=== PATIENT | male | born 1955 | race Hispanic/Latino ===

== ENCOUNTER 2017-03-21 05:50 | Day surgery (SDC) | payer MEDICARE ==
[2017-03-20 10:29] VITALS: BP 131/62
[2017-03-20 10:38] LABS: EOSINOPHILS % (AUTO) 5.8 % (0.0-8.0); HEMATOCRIT 31.2 % (42-54); LYMPHOCYTES % (AUTO) 24.6 % (21.0-51.0); MEAN CORPUSCULAR HEMOGLOBIN 30.4 pg (27.0-33.0); MEAN CORPUSCULAR HGB CONC 35.2 g/dL (32.0-36.0); MEAN CORPUSCULAR VOLUME 86.3 fL (79-99); MONOCYTES % (AUTO) 9.5 % (3.0-13.0); NEUTROPHILS % (AUTO) 59.1 % (40.0-77.0); NUCLEATED RED BLOOD CELLS 0.1 % (0.0-0.19); PLATELET COUNT (AUTO) 214 K/uL (130-400); RED BLOOD CELL COUNT(AUTO) 3.62 MIL/uL (4.50-6.20); RED CELL DISTRIBUTION WIDTH 13.1 % (11.0-15.5); WHITE BLOOD COUNT (AUTO) 8.5 K/uL (4.8-10.8)
[2017-03-20 10:44] LABS: CREATININE 1.7 mg/dL (0.5-1.5); POTASSIUM 4.8 mmol/L (3.5-5.1)
[2017-03-20 10:46] LABS: APPEARANCE,URINE Clear (CLEAR); BILIRUBIN,URINE Negative (NEGATIVE); COLOR,URINE Yellow (YELLOW); GLUCOSE, URINE (UA) Negative (NEGATIVE); KETONES,URINE Negative (NEGATIVE); LEUKOCYTE ESTERASE ,URINE Negative (NEGATIVE); NITRATE,URINE Negative (NEGATIVE); OCCULT BLOOD,URINE Negative (NEGATIVE); PROTEIN,URINE Negative (NEGATIVE); UROBILINOGEN,URINE 0.2 mg/dL (0.2-1.0)
[2017-03-20 10:48] LABS: INR 1.17 (0.85-1.15); PARTIAL THROMBOPLASTIN TIME 25.7 SEC (26.3-35.5); PROTHROMBIN TIME 12.2 SEC (9.6-11.6)
[2017-03-21] VITALS (12 sets, daily range): BP systolic 106–167; BP diastolic 52–89
[~2017-03-21] VITALS: Ht 171.4 cm; Wt 87.5 kg
[~2017-03-21 05:50] MED LIST: ACET1TAB27 PO; ACETAMINOPHEN 325 MG TAB PO PRN; AMLO5TAB2 PO; ASPI-1197 PO; CLOP75TA32 PO; GABA-531 PO; GLYB2.5T5 PO; HYDR12.530 PO; LISI40TA4 PO; METF10004 PO; NITR0.4T SL; PANT40TA25 PO; ROSU20TA38 PO; SODIUM CHLORIDE 0.9% 500ML 500 ML IV SCH
[2017-03-21] MEDS ORDERED: SODIUM CHLORIDE 0.9% 1000ML 1,000 ML IV SCH ×2 (06:00→12:06)
[2017-03-21] MEDS ORDERED: CLOPIDOGREL BISULFATE 300 MG TAB PO SCH (07:41)
[2017-03-21] MEDS ORDERED: HEPARIN SODIUM 1000UNIT/ML 10ML VIAL ONE (10:00)
[2017-03-21] MEDS ORDERED: SODIUM BICARB 50MEQ 50ML VIAL ONE (10:00)
[2017-03-21] MEDS ORDERED: LIDOCAINE HCL 2% 20ML ONE (10:01)
[2017-03-21] MEDS ORDERED: NITROGLYCERIN 5 MG/ML 10 ML VIAL IV ONE (10:01)
[2017-03-21] MEDS ORDERED: ISOVUE-300 100 ML VIAL IV ONE (10:01)
[2017-03-21] MEDS ORDERED: AMLO10TA2 PO (12:11)
[2017-03-21] MEDS ORDERED: GLUCAGON 1MG KIT 1 MG ML IM PRN (12:15)
[2017-03-21] MEDS ORDERED: DEXTROSE 50%-WATER 50 ML DISP.SYRIN IV PRN (12:15)
[2017-03-21] MEDS ORDERED: INSULIN HUMULIN R 100 UNIT/ML 3ML SQ SCH (16:30)
[2017-04-11] MEDS ORDERED: AMLO5TAB2 PO (16:49)
[2017-04-11] MEDS ORDERED: CLON0.1T PO (16:51)
[2017-06-07] MEDS ORDERED: AMLO10TA2 PO (10:25)
== END 2017-03-21 18:42 | disposition home or self-care (01) ==
LOC: DAH 05:50
PROVIDERS: ATTEND Internal Medicine Cardiovascular Disease
DX: I70.213 Atherosclerosis of native arteries of extremities with intermittent claudication, bilateral legs (principal); E11.51 Type 2 diabetes mellitus with diabetic peripheral angiopathy without gangrene; E11.69 Type 2 diabetes mellitus with other specified complication; I25.10 Atherosclerotic heart disease of native coronary artery without angina pectoris; I11.0 Hypertensive heart disease with heart failure; I50.22 Chronic systolic (congestive) heart failure; I15.0 Renovascular hypertension; Z79.899 Other long term (current) drug therapy; Z79.01 Long term (current) use of anticoagulants; E78.5 Hyperlipidemia, unspecified; Z79.82 Long term (current) use of aspirin; Z79.84 Long term (current) use of oral hypoglycemic drugs; Z95.1 Presence of aortocoronary bypass graft
CPT/HCPCS: 36415 ×2; 37226; 71045; 75625; 75710; 75716; 80048; 81003; 82948 ×3; 85025; 85347; 85610; 85730; 93005; 96360; 96361; 99156; 99157; A4606; C1760; C1769 ×3; C1874 ×2; C1893; C1894 ×2; J1644; J3490 ×3; J7040; Q9967

== ENCOUNTER → 2017-05-11 | Outpatient (CLI) | payer MEDICARE ==
[2017-04-11 16:35] VITALS: BP 160/60
[2017-04-11 16:50] LABS: APPEARANCE,URINE Clear (CLEAR); BILIRUBIN,URINE Negative (NEGATIVE); COLOR,URINE Yellow (YELLOW); GLUCOSE, URINE (UA) Negative (NEGATIVE); KETONES,URINE Negative (NEGATIVE); LEUKOCYTE ESTERASE ,URINE Negative (NEGATIVE); NITRATE,URINE Negative (NEGATIVE); OCCULT BLOOD,URINE Trace (NEGATIVE); PH,URINE 5.5 (5.0-8.0); PROTEIN,URINE POS 2+ (NEGATIVE)
[2017-04-11 16:53] LABS: BASOPHILS % (AUTO) 0.9 % (0.0-5.0); EOSINOPHILS % (AUTO) 3.3 % (0.0-8.0); HEMATOCRIT 31.3 % (42-54); MEAN CORPUSCULAR HEMOGLOBIN 31.2 pg (27.0-33.0); MEAN CORPUSCULAR HGB CONC 36.3 g/dL (32.0-36.0); MEAN CORPUSCULAR VOLUME 85.9 fL (79-99); MONOCYTES % (AUTO) 7.3 % (3.0-13.0); NEUTROPHILS % (AUTO) 69.5 % (40.0-77.0); PLATELET COUNT (AUTO) 238 K/uL (130-400); RED BLOOD CELL COUNT(AUTO) 3.65 MIL/uL (4.50-6.20); RED CELL DISTRIBUTION WIDTH 12.9 % (11.0-15.5)
[2017-04-11 16:55] LABS: CREATININE 1.4 mg/dL (0.5-1.5); POTASSIUM 4.8 mmol/L (3.5-5.1)
[2017-04-11 16:56] LABS: PARTIAL THROMBOPLASTIN TIME 25.4 SEC (26.3-35.5)
[2017-04-11 17:05] LABS: INR 1.22 (0.85-1.15); PROTHROMBIN TIME 12.8 SEC (9.6-11.6)
[2017-04-11 17:11] LABS: BACTERIA,URINE Rare /HPF (None Seen); RBC,URINE 0-1 /HPF (0-1); WBC,URINE 0-1 /HPF (0-1)
[2017-04-11 17:13] LABS: SQUAMOUS EPITHELIAL CELL,UR Rare /LPF (0-2)
[2017-05-09 09:37] LABS: APPEARANCE,URINE Clear (CLEAR); BILIRUBIN,URINE Negative (NEGATIVE); COLOR,URINE Yellow (YELLOW); GLUCOSE, URINE (UA) Negative (NEGATIVE); KETONES,URINE Negative (NEGATIVE); LEUKOCYTE ESTERASE ,URINE Negative (NEGATIVE); NITRATE,URINE Negative (NEGATIVE); OCCULT BLOOD,URINE Negative (NEGATIVE); PROTEIN,URINE Negative (NEGATIVE); UROBILINOGEN,URINE 0.2 mg/dL (0.2-1.0)
[2017-05-09 09:38] LABS: BASOPHILS % (AUTO) 0.4 % (0.0-5.0); EOSINOPHILS % (AUTO) 3.5 % (0.0-8.0); LYMPHOCYTES % (AUTO) 15.3 % (21.0-51.0); MEAN CORPUSCULAR HEMOGLOBIN 29.1 pg (27.0-33.0); MEAN CORPUSCULAR HGB CONC 33.6 g/dL (32.0-36.0); MEAN CORPUSCULAR VOLUME 86.5 fL (79-99); NEUTROPHILS % (AUTO) 73.8 % (40.0-77.0); PLATELET COUNT (AUTO) 222 K/uL (130-400); RED BLOOD CELL COUNT(AUTO) 3.59 MIL/uL (4.50-6.20); RED CELL DISTRIBUTION WIDTH 13.2 % (11.0-15.5); WHITE BLOOD COUNT (AUTO) 9.4 K/uL (4.8-10.8)
[2017-05-09 09:46] LABS: CREATININE 1.6 mg/dL (0.5-1.5); POTASSIUM 4.7 mmol/L (3.5-5.1)
[2017-05-09 09:47] LABS: INR 1.34 (0.85-1.15); PARTIAL THROMBOPLASTIN TIME 26.4 SEC (26.3-35.5)
[~2017-05-11] VITALS: Ht 171.4 cm; Wt 87.5 kg
[~2017-05-11] MED LIST changes: -ACETAMINOPHEN 325 MG TAB PO PRN; +ALPRAZOLAM 0.5 MG TABLET ONE; +ALPRAZOLAM 0.5 MG TABLET PO SCH; +AMLO10TA2 PO; +AMLODIPINE BESYLATE 5 MG TAB PO SCH; +ASPIRIN 81MG TAB.CHEW PO SCH; +CLON0.1T PO; +CLONIDINE HCL 0.1 MG TABLET PO SCH; +CLOPIDOGREL BISULFATE 75 MG TAB PO SCH; -HYDR12.530 PO; -LISI40TA4 PO; +ROSU20TA30 PO; -ROSU20TA38 PO; +SODIUM CHLORIDE 0.9% 1000ML 1,000 ML IV SCH
[2017-05-11 06:15] VITALS: BP 163/69
[2017-05-11 12:00] VITALS: BP 156/69
[2017-05-11 16:04] VITALS: BP 147/65
== END | disposition home or self-care (01) ==
LOC: DAH 06:06 → EDSTATUS 09:00 → LAB 15:51
PROVIDERS: ATTEND Internal Medicine Cardiovascular Disease
DX: Z01.818 Encounter for other preprocedural examination (principal); I73.9 Peripheral vascular disease, unspecified; I10 Essential (primary) hypertension; E11.9 Type 2 diabetes mellitus without complications; I25.10 Atherosclerotic heart disease of native coronary artery without angina pectoris; Z95.1 Presence of aortocoronary bypass graft
CPT/HCPCS: 36415 ×2; 71045; 80048 ×2; 81001; 81003; 82948 ×2; 85025 ×2; 85610 ×2; 85730 ×2; 93005; A4606; J7030

== ENCOUNTER → 2017-07-12 | Outpatient (CLI) | payer MEDICARE ==
[~2017-07-12] MED LIST changes: +ALBUTEROL SULFATE 0.083% 2.5 MG/3 ML INH IH ONE; -ALPRAZOLAM 0.5 MG TABLET ONE; -ALPRAZOLAM 0.5 MG TABLET PO SCH; -AMLODIPINE BESYLATE 5 MG TAB PO SCH; -ASPIRIN 81MG TAB.CHEW PO SCH; -CLONIDINE HCL 0.1 MG TABLET PO SCH; -CLOPIDOGREL BISULFATE 75 MG TAB PO SCH; -SODIUM CHLORIDE 0.9% 1000ML 1,000 ML IV SCH; -SODIUM CHLORIDE 0.9% 500ML 500 ML IV SCH
== END | disposition home or self-care (01) ==
LOC: RESP 08:09
PROVIDERS: ATTEND Internal Medicine
DX: J44.9 Chronic obstructive pulmonary disease, unspecified (principal)
CPT/HCPCS: 94060; 94727; 94729

== ENCOUNTER 2018-01-16 06:50 | Day surgery (SDC) | payer MEDICARE ==
[2018-01-12 09:42] VITALS: BP 112/53
[2018-01-12 09:51] LABS: BASOPHILS % (AUTO) 0.8 % (0.0-5.0); EOSINOPHILS % (AUTO) 3.2 % (0.0-8.0); HEMATOCRIT 35.5 % (42-54); MEAN CORPUSCULAR HEMOGLOBIN 30.4 pg (27.0-33.0); MEAN CORPUSCULAR VOLUME 89.5 fL (79-99); MONOCYTES % (AUTO) 6.8 % (3.0-13.0); NEUTROPHILS % (AUTO) 70.2 % (40.0-77.0); PLATELET COUNT (AUTO) 239 K/uL (130-400); RED BLOOD CELL COUNT(AUTO) 3.97 MIL/uL (4.50-6.20); RED CELL DISTRIBUTION WIDTH 12.5 % (11.0-15.5); WHITE BLOOD COUNT (AUTO) 9.3 K/uL (4.8-10.8)
[2018-01-12 09:56] LABS: APPEARANCE,URINE CLEAR (CLEAR); BILIRUBIN,URINE NEGATIVE (NEGATIVE); COLOR,URINE YELLOW (YELLOW); GLUCOSE, URINE (UA) NEGATIVE (NEGATIVE); KETONES,URINE NEGATIVE (NEGATIVE); LEUKOCYTE ESTERASE ,URINE NEGATIVE (NEGATIVE); NITRATE,URINE NEGATIVE (NEGATIVE); OCCULT BLOOD,URINE TRACE-INTACT (NEGATIVE); PH,URINE 5.5 (5.0-8.0); PROTEIN,URINE NEGATIVE (NEGATIVE); UROBILINOGEN,URINE 0.2 mg/dL (0.2-1.0)
[2018-01-12 09:59] LABS: BACTERIA,URINE Rare /HPF (None Seen); RBC,URINE 0-1 /HPF (0-1); SQUAMOUS EPITHELIAL CELL,UR Rare /HPF (0-2); WBC,URINE 0-1 /HPF (0-1)
[2018-01-12 10:02] LABS: INR 1.16 (0.85-1.15); PARTIAL THROMBOPLASTIN TIME 26.3 SEC (26.3-35.5); PROTHROMBIN TIME 12.1 SEC (9.6-11.6)
[2018-01-12 10:10] LABS: CREATININE 1.3 mg/dL (0.5-1.5); POTASSIUM 4.6 mmol/L (3.5-5.1)
[2018-01-16] VITALS (13 sets, daily range): BP systolic 122–153; BP diastolic 54–71
[~2018-01-16] VITALS: Ht 175.3 cm; Wt 83.5 kg
[~2018-01-16 06:50] MED LIST changes: -ACET1TAB27 PO; -ALBUTEROL SULFATE 0.083% 2.5 MG/3 ML INH IH ONE; -AMLO10TA2 PO; +AMLO10TA6 PO; -AMLO5TAB2 PO; +ASPI-1026 PO; -ASPI-1197 PO; +BACL10TA PO; +DULO30CA51 PO; -GABA-531 PO; +LISI40TA4 PO; +METF-446 PO; -METF10004 PO; -NITR0.4T SL; -ROSU20TA30 PO; +ROSU40TA20 PO; +TIZA4TAB4 PO
[2018-01-16] MEDS ORDERED: SODIUM BICARB 50MEQ 50ML VIAL ONE (07:40)
[2018-01-16] MEDS ORDERED: HEPARIN SODIUM 1000UNIT/ML 10ML VIAL ONE (07:40)
[2018-01-16] MEDS ORDERED: LIDOCAINE HCL 2% 20ML ONE (07:40)
[2018-01-16] MEDS ORDERED: IODIXANOL 320 MG/ML 100 ML VIAL ONE (07:40)
[2018-01-16] MEDS ORDERED: NITROGLYCERIN 5 MG/ML 10 ML VIAL IV ONE (07:40)
[2018-01-16] MEDS ORDERED: MEPERIDINE-PF 25 MG/ML SYG ONE (08:05)
[2018-01-16] MEDS ORDERED: MIDAZOLAM HCL 1 MG/ML 2ML VIAL ONE (08:05)
[2018-01-16] MEDS ORDERED: IOHEXOL-350 50ML VIAL IV ONE (09:36)
[2018-01-16] MEDS ORDERED: GLUCAGON 1MG KIT 1 MG ML IM PRN (10:00)
[2018-01-16] MEDS ORDERED: SODIUM CHLORIDE 0.9% 1000ML 1,000 ML IV SCH (10:00)
[2018-01-16] MEDS ORDERED: DEXTROSE 50%-WATER 50 ML DISP.SYRIN IV PRN (10:00)
[2018-01-16] MEDS ORDERED: HYDRALAZINE HCL 20 MG/ML VIAL ONE (10:09)
[2018-01-16] MEDS ORDERED: INSULIN HUMULIN R 100 UNIT/ML 3ML SQ SCH (11:30)
== END 2018-01-16 15:18 | disposition home or self-care (01) ==
LOC: DAH 06:50
PROVIDERS: ATTEND Internal Medicine Cardiovascular Disease
DX: E11.51 Type 2 diabetes mellitus with diabetic peripheral angiopathy without gangrene (principal); I70.1 Atherosclerosis of renal artery; I70.211 Atherosclerosis of native arteries of extremities with intermittent claudication, right leg
CPT/HCPCS: 36415; 37226; 37230; 71045; 75625; 75716; 80048; 81001; 82948 ×2; 85025; 85347 ×2; 85610; 85730; 93005; A4606; C1725 ×4; C1760; C1769 ×5; C1874 ×3; C1893; C1894; J0360; J1644 ×3; J1815; J2175; J2250; J3490 ×3; Q9967 ×2; 37228; 99156; 99157

== ENCOUNTER → 2018-03-21 | Day surgery (SDC) | payer MEDICARE ==
[2018-03-19 08:47] LABS: APPEARANCE,URINE Clear (CLEAR); BASOPHILS % (AUTO) 0.7 % (0.0-5.0); BILIRUBIN,URINE Negative (NEGATIVE); COLOR,URINE Yellow (YELLOW); EOSINOPHILS % (AUTO) 5.3 % (0.0-8.0); GLUCOSE, URINE (UA) Negative (NEGATIVE); HEMATOCRIT 34.3 % (42-54); KETONES,URINE Negative (NEGATIVE); LEUKOCYTE ESTERASE ,URINE Negative (NEGATIVE); MEAN CORPUSCULAR HEMOGLOBIN 29.6 pg (27.0-33.0); MEAN CORPUSCULAR HGB CONC 33.7 g/dL (32.0-36.0); MEAN CORPUSCULAR VOLUME 87.8 fL (79-99); MONOCYTES % (AUTO) 8.9 % (3.0-13.0); NEUTROPHILS % (AUTO) 56.1 % (40.0-77.0); NITRATE,URINE Negative (NEGATIVE); NUCLEATED RED BLOOD CELLS 0.1 % (0.0-0.19); OCCULT BLOOD,URINE Negative (NEGATIVE); PLATELET COUNT (AUTO) 188 K/uL (130-400); PROTEIN,URINE Negative (NEGATIVE); RED BLOOD CELL COUNT(AUTO) 3.91 MIL/uL (4.50-6.20); RED CELL DISTRIBUTION WIDTH 12.8 % (11.0-15.5); WHITE BLOOD COUNT (AUTO) 7.7 K/uL (4.8-10.8)
[2018-03-19 08:52] LABS: CREATININE 1.6 mg/dL (0.5-1.5); POTASSIUM 4.5 mmol/L (3.5-5.1)
[2018-03-19 09:02] VITALS: BP 110/52
[2018-03-19 09:09] LABS: INR 1.17 (0.85-1.15); PARTIAL THROMBOPLASTIN TIME 26.1 SEC (26.3-35.5); PROTHROMBIN TIME 12.2 SEC (9.6-11.6)
--- NOTE | 2018-03-20 12:11 | NUR ---
ABNORMAL LABS REPORTED ABNORMAL LABS TO DERRICK MCLAUGHLIN. REPORTED PT, INR, PTT, CREATINE 1.6, BUN 40. ORDERS FOR HYDRATION, NS 100ML/HR ON ARRIVAL UNTIL GOING TO PROCEDURE.
[~2018-03-21] VITALS: Ht 175.3 cm; Wt 84.4 kg
[~2018-03-21] MED LIST changes: +ACETAMINOPHEN 325 MG TAB PO PRN; +ACETAMINOPHEN-CODEINE 300/30MG TAB PO PRN; -AMLO10TA6 PO; +AMLO5TAB9 PO; +ASPIRIN 325MG EC TAB 325 MG TABLET.DR PO ONE; +DEXTROSE 50%-WATER 50 ML DISP.SYRIN IV PRN; +GABA-529 PO; +GLUCAGON 1MG KIT 1 MG ML IM PRN; +HEPARIN SODIUM 1000UNIT/ML 10ML VIAL ONE; +INSULIN HUMULIN R 100 UNIT/ML 3ML SQ SCH; +IODIXANOL 320 MG/ML 100 ML VIAL ONE; +LIDOCAINE HCL-MPF 2% 10ML AMP IJ ONE; +MELO-108 PO; +MEPERIDINE-PF 50 MG/ML SYG ONE; +MIDAZOLAM HCL 1 MG/ML 2ML VIAL ONE; +NITROGLYCERIN 5 MG/ML 10 ML VIAL IV ONE; +SODIUM BICARB 50MEQ 50ML VIAL ONE; +SODIUM CHLORIDE 0.9% 1000ML 1,000 ML IV SCH; +SODIUM CHLORIDE 0.9% 500ML 500 ML IV SCH
[2018-03-21 06:10] VITALS: BP 159/75
--- NOTE | 2018-03-21 17:45 | NUR ---
NOTE CAME IN FROM [facility] AND HE IS GOING TO STAY HERE UNTIL BEDREST TIMES ARE COMPLETE. S/P REVASCULARIZATION RLE. LEFT FEMORAL PUNCTURE SITE. LEFT FEMORAL PULSE PALPABLE. NO HEMATOMA OR BLEEDING NOTED. LEFT POPLITEAL AND DP PRESENT, PALPABLE AND WITH CAPILLARY REFILL ABOUT 2-3 SECONDS. FEET WARM TO TOUCH. DENIES ANY PAIN OR NUMBNESS. WILL STAY HERE FOR HYDRATION WELL FOR HIS CREATININE WAS ELEVATED AT 1.6 HAS BEEN VOIDING AND NO BLEEDING NOTED IN URINE.
--- NOTE | 2018-03-21 19:01 | NUR ---
REMAINS STABLE ADN WITHOUT DISTRESS. REMAINS BEDREST. HAS EATEN DINNER. CONTINUES TO VOID NO PROBLEM. DRESSING TO LEFT GROIN D/I NO HEMATOMA AND GOOD PULSES TO BOTH FEET. SAME STRENGTH, PALPABLE.
--- NOTE | 2018-03-21 19:35 | NUR ---
assessment note patient awake, alert, ox3, no sob, no c/o pain, left groin dressing d/i, no hematoma or bleeding noted, continue on bedrest till 2200
--- NOTE | 2018-03-21 22:00 | NUR ---
discharge instructions dressing left groin d/i, no bleeding or hematoma noted, pedal pulses present ble strong, sit patient up , no dizziness or chest pain noted, discharge instructions given patient verbalizes understanding via teach back, saline lock removed left wrist, apply 2x2 and tape
--- NOTE | 2018-03-21 22:10 | NUR ---
discharge discharge home via wheel chair, nad
== END ==
LOC: DAH 06:08
PROVIDERS: ATTEND Internal Medicine Cardiovascular Disease
DX: I70.211 Atherosclerosis of native arteries of extremities with intermittent claudication, right leg (principal); I70.8 Atherosclerosis of other arteries; Z79.899 Other long term (current) drug therapy; Z87.891 Personal history of nicotine dependence; Z79.01 Long term (current) use of anticoagulants; I10 Essential (primary) hypertension; Z95.5 Presence of coronary angioplasty implant and graft; Z95.1 Presence of aortocoronary bypass graft; E78.5 Hyperlipidemia, unspecified; E11.9 Type 2 diabetes mellitus without complications; Z98.890 Other specified postprocedural states; I65.23 Occlusion and stenosis of bilateral carotid arteries; R00.1 Bradycardia, unspecified
CPT/HCPCS: 36415; 37226; 37230; 37234; 71045; 75716; 80048; 81003; 82948 ×2; 85025; 85610; 85730; 93005; A4606; C1725 ×2; C1760; C1769 ×2; C1874 ×5; C1893; C1894; J1644 ×2; J2175; J2250 ×2; J3490 ×3; J7030; Q9967; 75710; 99156; 99157

== ENCOUNTER 2018-10-10 06:07 | Day surgery (SDC) | payer MEDICARE ==
[2018-10-08 09:30] VITALS: BP 134/57
[2018-10-08 09:47] LABS: EOSINOPHILS % (AUTO) 5.7 % (0.0-8.0); HEMATOCRIT 34.3 % (42-54); MEAN CORPUSCULAR HGB CONC 33.2 g/dL (32.0-36.0); MEAN CORPUSCULAR VOLUME 87.2 fL (79-99); MONOCYTES % (AUTO) 7.6 % (3.0-13.0); NEUTROPHILS % (AUTO) 62.7 % (40.0-77.0); PLATELET COUNT (AUTO) 210 K/uL (130-400); RED BLOOD CELL COUNT(AUTO) 3.93 MIL/uL (4.50-6.20); RED CELL DISTRIBUTION WIDTH 14.5 % (11.0-15.5); WHITE BLOOD COUNT (AUTO) 8.4 K/uL (4.8-10.8)
[2018-10-08 09:48] LABS: APPEARANCE,URINE Clear (CLEAR); BILIRUBIN,URINE Negative (NEGATIVE); COLOR,URINE Yellow (YELLOW); GLUCOSE, URINE (UA) Negative (NEGATIVE); KETONES,URINE Trace mg/dL (NEGATIVE); LEUKOCYTE ESTERASE ,URINE Trace (NEGATIVE); NITRATE,URINE Negative (NEGATIVE); OCCULT BLOOD,URINE Negative (NEGATIVE); PROTEIN,URINE Trace mg/dL (NEGATIVE)
[2018-10-08 09:55] LABS: CREATININE 2.5 mg/dL (0.5-1.5); POTASSIUM 5.2 mmol/L (3.5-5.1)
[2018-10-08 09:59] LABS: INR 1.21 (0.85-1.15); PARTIAL THROMBOPLASTIN TIME 26.8 SEC (26.3-35.5); PROTHROMBIN TIME 12.7 SEC (9.6-11.6)
[2018-10-08 10:02] LABS: BACTERIA,URINE Moderate /HPF (None Seen)
[2018-10-08 10:03] LABS: RBC,URINE None Seen /HPF (0-1); WBC,URINE 0-1 /HPF (0-1)
--- NOTE | 2018-10-09 07:50 | NUR ---
REPORTED [T PF 12.7, INR 1.21, HGB 11.4, POTASSIUM 5.2, BUN 46, BALANCE BRIDGE ASSEMBLER 2.5, GFR 28 , AND TRACE OF LEUKEST . NEW ORDERS TO HAVE PT COME IN AT 0600 FOR HYDRATION, NS AT 100ML/HR, AND AND REPEAT BMP DAY OF PROCEDURE. Addendum: 10/09/18 at 0837 by KAMRAN PALACIOS RN RN REPORTED PT 12.7
[~2018-10-10] VITALS: Ht 174 cm; Wt 85.4 kg
[2018-10-10] VITALS (9 sets, daily range): BP systolic 124–155; BP diastolic 52–69
[~2018-10-10 06:07] MED LIST changes: -ACETAMINOPHEN-CODEINE 300/30MG TAB PO PRN; -ASPIRIN 325MG EC TAB 325 MG TABLET.DR PO ONE; -DEXTROSE 50%-WATER 50 ML DISP.SYRIN IV PRN; -DULO30CA51 PO; -GABA-529 PO; +GLIM4TAB3 PO; -GLUCAGON 1MG KIT 1 MG ML IM PRN; -GLYB2.5T5 PO; -HEPARIN SODIUM 1000UNIT/ML 10ML VIAL ONE; -INSULIN HUMULIN R 100 UNIT/ML 3ML SQ SCH; -IODIXANOL 320 MG/ML 100 ML VIAL ONE; -LIDOCAINE HCL-MPF 2% 10ML AMP IJ ONE; +MAGNESIUM OXIDE PO; -MEPERIDINE-PF 50 MG/ML SYG ONE; -MIDAZOLAM HCL 1 MG/ML 2ML VIAL ONE; -NITROGLYCERIN 5 MG/ML 10 ML VIAL IV ONE; +OMEP40CA37 PO; -ROSU40TA20 PO; +ROSU40TA21 PO; -SODIUM BICARB 50MEQ 50ML VIAL ONE; -TIZA4TAB4 PO; +TIZA4TAB5 PO
--- NOTE | 2018-10-10 06:25 | NUR ---
ARRIVED PATIENT ARRIVED FROM HOME, ACCOMPANIED BY SPOUSE (LISA CHRISTIANSON). PATIENT AAOX3, RESPIRATIONS UNLABORED, VITAL SIGNS STABLE, DENIES ANY PAIN AT THIS TIME. PROCEDURE EXPLAINED AND VERIFIED WITH PATIENT. HOSPITAL ROUTINE EXPLAINED TO PATIENT AND SPOUSE, BOTH VERBALIZED UNDERSTANDING. ALL QUESTIONS/CONCERNS ADDRESSED.
[2018-10-10 07:05] LABS: CREATININE 1.9 mg/dL (0.5-1.5); POTASSIUM 4.7 mmol/L (3.5-5.1)
[2018-10-10] MEDS ORDERED: NITROGLYCERIN 5 MG/ML 10 ML VIAL IV ONE (13:13)
[2018-10-10] MEDS ORDERED: LIDOCAINE HCL 2% 20ML ONE (13:13)
[2018-10-10] MEDS ORDERED: SODIUM BICARB 50MEQ 50ML VIAL ONE (13:13)
[2018-10-10] MEDS ORDERED: HEPARIN SODIUM 1000UNIT/ML 10ML VIAL ONE (13:13)
[2018-10-10] MEDS ORDERED: IODIXANOL 320 MG/ML 100 ML VIAL ONE (13:13)
--- NOTE | 2018-10-10 13:20 | NUR ---
TRANSFERRED PATIENT TAKEN TO TRAVELING NURSE VIA BED. SPOUSE INSTRUCTED TO WAIT IN ROOM IN ORDER TO SPEAK WITH MD AFTER PROCEDURE.
[2018-10-10] MEDS ORDERED: IOHEXOL-350 50ML VIAL IV ONE (13:38)
[2018-10-10] MEDS ORDERED: MEPERIDINE-PF 25 MG/ML SYG ONE (13:52)
[2018-10-10] MEDS ORDERED: MIDAZOLAM HCL 1 MG/ML 2ML VIAL ONE (13:52)
[2018-10-10] MEDS ORDERED: SODIUM CHLORIDE 0.9% 1000ML 1,000 ML IV SCH (14:34)
[2018-10-10] MEDS ORDERED: DEXTROSE 50%-WATER 50 ML DISP.SYRIN IV PRN (14:45)
[2018-10-10] MEDS ORDERED: ACETAMINOPHEN-CODEINE 300/30MG TAB PO PRN (14:45)
[2018-10-10] MEDS ORDERED: GLUCAGON 1MG KIT 1 MG ML IM PRN (14:45)
--- NOTE | 2018-10-10 14:50 | NUR ---
PATIENT RETURNED PATIENT BROUGHT BACK FROM [employer] [employer] [facility] BY MATHEUS ROGEL AND MATHEUS LLOYD. PATIENT AAOX3, RESPIRATIONS UNLABORED, VITAL SIGNS STABLE. PATIENT DENIES ANY PAIN AT THIS TIME. RIGHT FEMORAL SITE WITH DRESSING INTACT, MYNX CLOSURE. NO HEMATOMA NOTED, AREA SOFT AND NONTENDER. PEDAL PULSES PRESENT WITH DOPPLER. PATIENT'S SPOUSE AT BEDSIDE. PATIENT INSTRUCTED NOT TO BEND OR MOVE RIGHT LEG, PATIENT VERBALIZED UNDERSTANDING.
[2018-10-10] MEDS ORDERED: INSULIN HUMULIN R 100 UNIT/ML 3ML SQ SCH (16:30)
--- NOTE | 2018-10-10 19:05 | NUR ---
PATIENT DISCHARGED DISCHARGE INSTRUCTIONS PROVIDED TO PATIENT AND PATIENT'S SPOUSE. FOLLOW UP APPOINTMENTS EXPLAINED AND PATIENT INSTRUCTED TO STOP TAKING MELOXICAM. PATIENT VERBALIZED UNDERSTANDING. FEMORAL SITE AFTER CARE INSTRUCTIONS PROVIDED AND EXPLAINED, PT VERBALIZED UNDERSTANDING. PATIENT DISCHARGED AND TAKEN TO PRIVATE VEHICLE VIA WHEELCHAIR, PATIENT ASSISTED INTO PRIVATE VEHICLE.
== END 2018-10-10 17:05 ==
LOC: DAH 06:07
PROVIDERS: ATTEND Internal Medicine Cardiovascular Disease
DX: I70.213 Atherosclerosis of native arteries of extremities with intermittent claudication, bilateral legs (principal); I10 Essential (primary) hypertension; E78.5 Hyperlipidemia, unspecified; E11.9 Type 2 diabetes mellitus without complications; F41.9 Anxiety disorder, unspecified; F14.11 Cocaine abuse, in remission; I25.10 Atherosclerotic heart disease of native coronary artery without angina pectoris; Z79.84 Long term (current) use of oral hypoglycemic drugs; Z79.82 Long term (current) use of aspirin; Z79.899 Other long term (current) drug therapy; Z79.01 Long term (current) use of anticoagulants; Z95.5 Presence of coronary angioplasty implant and graft; Z86.73 Personal history of transient ischemic attack (TIA), and cerebral infarction without residual deficits; Z82.49 Family history of ischemic heart disease and other diseases of the circulatory system; Z83.3 Family history of diabetes mellitus
CPT/HCPCS: 36247; 36415 ×2; 71045; 75716; 80048 ×2; 81001; 82948 ×3; 85025; 85610; 85730; 93005; 96360; 96361; C1760; C1769; C1894; J1644; J2175; J2250; J3490 ×3; J7030; Q9967 ×2; 99156; 99157

== ENCOUNTER 2018-10-17 06:50 | Inpatient (IN) | payer MEDICARE | END 2018-10-19 12:40 | disposition home or self-care (01) | LOC: DAHIP 06:50 → 2BH 12:12 → 2AH 10-18 11:57 | PROC: 041 Lower Arteries, Bypass (ICD-10-PCS; principal; 2018-10-17 09:00) | PROC: 06BQ4ZZ Excision of Left Saphenous Vein, Percutaneous Endoscopic Approach (ICD-10-PCS; 2018-10-17 09:00) | DX: E11.51 Type 2 diabetes mellitus with diabetic peripheral angiopathy without gangrene (principal); Z95.1 Presence of aortocoronary bypass graft; I25.10 Atherosclerotic heart disease of native coronary artery without angina pectoris; E78.5 Hyperlipidemia, unspecified; I10 Essential (primary) hypertension ==

== ENCOUNTER → 2019-01-04 | Outpatient (CLI) | payer MEDICARE ==
[~2019-01-04] VITALS: Ht 172.7 cm; Wt 84.4 kg
[~2019-01-04] MED LIST changes: -ACETAMINOPHEN 325 MG TAB PO PRN; +CEFUROXIME SODIUM 1.5 GM VIAL IVP SCH; +FURO20TA6 PO; -GLIM4TAB3 PO; +GLIM4TAB5 PO; -MELO-108 PO; -OMEP40CA37 PO; -SODIUM CHLORIDE 0.9% 1000ML 1,000 ML IV SCH; -SODIUM CHLORIDE 0.9% 500ML 500 ML IV SCH; +TRAM50TA4 PO
[2019-01-04 15:57] VITALS: BP 144/71
[2019-01-04 16:05] LABS: BASOPHILS % (AUTO) 0.7 % (0.0-5.0); EOSINOPHILS % (AUTO) 0.1 % (0.0-8.0); HEMATOCRIT 32.5 % (42-54); LYMPHOCYTES % (AUTO) 7.3 % (21.0-51.0); MEAN CORPUSCULAR HEMOGLOBIN 28.8 pg (27.0-33.0); MEAN CORPUSCULAR HGB CONC 33.3 g/dL (32.0-36.0); MEAN CORPUSCULAR VOLUME 86.5 fL (79-99); MONOCYTES % (AUTO) 4.7 % (3.0-13.0); NEUTROPHILS % (AUTO) 87.2 % (40.0-77.0); PLATELET COUNT (AUTO) 250 K/uL (130-400); RED BLOOD CELL COUNT(AUTO) 3.76 MIL/uL (4.50-6.20); WHITE BLOOD COUNT (AUTO) 17.5 K/uL (4.8-10.8)
[2019-01-04 16:13] LABS: CREATININE 1.7 mg/dL (0.5-1.5); POTASSIUM 4.6 mmol/L (3.5-5.1)
[2019-01-04 16:15] LABS: INR 1.23 (0.85-1.15); PARTIAL THROMBOPLASTIN TIME 26.2 SEC (26.3-35.5); PROTHROMBIN TIME 12.8 SEC (9.6-11.6)
[2019-01-04 16:21] LABS: HEMOGLOBIN A1C 7.6 % (4.0-6.0)
[2019-01-04 16:26] LABS: PLATELET FUNCTION ANALYSIS EPI 74 SEC (55-192)
[2019-01-04 16:27] LABS: HEMATOCRIT 32.5 % (42-54); PLATELET COUNT (AUTO) 250 K/uL (130-400); PLATELET FUNCTION ANALYSIS ADP 150 SEC (62-100)
--- NOTE | 2019-01-04 16:55 | NUR ---
LABS INFORMED MATHEUS FERNANDEZ OF ABNORMAL WBC. PER DR. CABRERA, REDRAW CBC ON AM OF PROCEDURE.
== END | disposition home or self-care (01) ==
LOC: DAH 10:00 → EDSTATUS 11:00 → DAHIP 01-09 06:28 → UNDOADMIN 01-09 06:28
PROVIDERS: ATTEND Thoracic Surgery (Cardiothoracic Vascular Surgery)
DX: Z01.818 Encounter for other preprocedural examination (principal); I21.19 ST elevation (STEMI) myocardial infarction involving other coronary artery of inferior wall; I73.9 Peripheral vascular disease, unspecified
CPT/HCPCS: 36415; 71046; 80048; 83036; 85025; 85576 ×2; 85610; 85730; 86850; 86900; 86901; 93005; A6260

== ENCOUNTER 2019-02-11 22:16 | Emergency (ER) | payer MEDICARE ==
[~2019-02-11 22:16] MED LIST changes: -CEFUROXIME SODIUM 1.5 GM VIAL IVP SCH
[2019-02-11 22:49] LABS: BASOPHILS % (AUTO) 0.5 % (0.0-5.0); EOSINOPHILS % (AUTO) 3.2 % (0.0-8.0); HEMATOCRIT 31.6 % (42-54); LYMPHOCYTES % (AUTO) 22.7 % (21.0-51.0); MEAN CORPUSCULAR HEMOGLOBIN 27.5 pg (27.0-33.0); MEAN CORPUSCULAR HGB CONC 32.9 g/dL (32.0-36.0); MEAN CORPUSCULAR VOLUME 83.6 fL (79-99); MONOCYTES % (AUTO) 7.1 % (3.0-13.0); NEUTROPHILS % (AUTO) 66.2 % (40.0-77.0); PLATELET COUNT (AUTO) 210 K/uL (130-400); RED BLOOD CELL COUNT(AUTO) 3.78 MIL/uL (4.50-6.20); RED CELL DISTRIBUTION WIDTH 13.1 % (11.0-15.5); WHITE BLOOD COUNT (AUTO) 10.5 K/uL (4.8-10.8)
[2019-02-11 22:59] LABS: CREATININE 1.6 mg/dL (0.5-1.5)
[2019-02-11 23:03] LABS: ALBUMIN 3.8 g/dL (3.5-5.0); BILIRUBIN,TOTAL 0.2 mg/dL (0.2-1.0); TOTAL PROTEIN, SERUM 7.3 g/dL (6.0-8.3)
[2019-02-11 23:07] LABS: INR 1.28 (0.85-1.15); PARTIAL THROMBOPLASTIN TIME 24.1 SEC (26.3-35.5); PROTHROMBIN TIME 13.3 SEC (9.6-11.6)
== END 2019-02-12 00:13 | disposition home or self-care (01) ==
LOC: EDH 22:16
DX: R13.10 Dysphagia, unspecified (principal); R07.89 Other chest pain; I10 Essential (primary) hypertension; E11.9 Type 2 diabetes mellitus without complications; I25.10 Atherosclerotic heart disease of native coronary artery without angina pectoris; E78.5 Hyperlipidemia, unspecified; Z87.891 Personal history of nicotine dependence
CPT/HCPCS: 36415; 70360; 71046; 80053; 82550; 83690; 84484; 85025; 85610; 85730; 93005

== ENCOUNTER → 2019-03-25 | Outpatient (CLI) | payer MEDICARE ==
[~2019-03-25] MED LIST changes: +GLIM4TAB36 PO; -GLIM4TAB5 PO
== END | disposition home or self-care (01) ==
LOC: RAH 09:18
PROVIDERS: ATTEND Thoracic Surgery (Cardiothoracic Vascular Surgery)
DX: M51.26 Other intervertebral disc displacement, lumbar region (principal); M48.061 Spinal stenosis, lumbar region without neurogenic claudication
CPT/HCPCS: 72148

== ENCOUNTER → 2019-08-22 | Outpatient (CLI) | payer MEDICARE ==
[~2019-08-22] MED LIST changes: -BACL10TA PO; -FURO20TA6 PO; +GADODIAMIDE 10 MMOL/20 ML VIAL IV ONE; -GLIM4TAB36 PO; +GLYB2.5 PO; -MAGNESIUM OXIDE PO; +RIVA2.5T PO; -TIZA4TAB5 PO; -TRAM50TA4 PO
== END | disposition home or self-care (01) ==
LOC: EDBD 14:44 → RAH 14:44
PROVIDERS: ATTEND Internal Medicine
DX: G45.9 Transient cerebral ischemic attack, unspecified (principal); G31.89 Other specified degenerative diseases of nervous system
CPT/HCPCS: 70553; A9579

== ENCOUNTER 2019-11-05 07:28 | Day surgery (SDC) | payer MEDICARE ==
[2019-11-05] VITALS (8 sets, daily range): BP systolic 125–144; BP diastolic 45–77
[~2019-11-05] VITALS: Ht 170.2 cm; Wt 81.6 kg
[~2019-11-05 07:28] MED LIST changes: -GADODIAMIDE 10 MMOL/20 ML VIAL IV ONE; -GLYB2.5 PO; -PANT40TA25 PO; +PANT40TA54 PO; -RIVA2.5T PO; +SODIUM CHLORIDE 0.9% 1000ML 1,000 ML IV ONE
[2019-11-05] MEDS ORDERED: ATOR40TA69 PO (08:47)
[2019-11-05] MEDS ORDERED: PROPOFOL 10 MG/ML 20ML VIAL IV ONE (09:31)
[2019-11-05] MEDS ORDERED: MIDAZOLAM HCL 1 MG/ML 2ML VIAL ONE (09:31)
== END 2019-11-05 10:29 | disposition home or self-care (01) ==
LOC: ENDO 07:28 → DAH 07:28 → ENDO 10:29
PROVIDERS: ATTEND Internal Medicine
DX: K22.2 Esophageal obstruction (principal); K29.50 Unspecified chronic gastritis without bleeding; K44.9 Diaphragmatic hernia without obstruction or gangrene; D50.9 Iron deficiency anemia, unspecified; K21.9 Gastro-esophageal reflux disease without esophagitis; I10 Essential (primary) hypertension; I25.10 Atherosclerotic heart disease of native coronary artery without angina pectoris; E11.9 Type 2 diabetes mellitus without complications; F41.9 Anxiety disorder, unspecified; E78.5 Hyperlipidemia, unspecified; Z79.82 Long term (current) use of aspirin; Z79.899 Other long term (current) drug therapy; Z20.828 Contact with and (suspected) exposure to other viral communicable diseases
CPT/HCPCS: 43239; 43249; 82948 ×2; 88305; 88342; A4215; A4221; A4222; A4223; A4606; A4620; A4657 ×2; A4663; C1726; C9803; J2250; J2704; J7030; U0003

== ENCOUNTER → 2022-03-28 | Outpatient (CLI) | payer MEDICARE ==
[~2022-03-28] MED LIST changes: +AMLO-257 PO; -AMLO5TAB9 PO; +ATOR40TA69 PO; -LISI40TA4 PO; +LISI40TA9 PO; -ROSU40TA21 PO; -SODIUM CHLORIDE 0.9% 1000ML 1,000 ML IV ONE
[2022-03-28 16:23] LABS: CREATININE 1.4 mg/dL (0.5-1.5); POTASSIUM 4.8 mmol/L (3.5-5.1)
== END | disposition home or self-care (01) ==
LOC: EDBD 14:07 → LAB 14:07
PROVIDERS: ATTEND Physician Assistant
DX: I10 Essential (primary) hypertension (principal)
CPT/HCPCS: 36415; 80048

== ENCOUNTER → 2022-04-12 | Outpatient (CLI) | payer MEDICARE ==
[~2022-04-12] MED LIST changes: +IOHEXOL 350 MG/ML 100ML INFUS..BTL IV ONE; +IOHEXOL-350 50ML VIAL IV ONE
== END | disposition home or self-care (01) ==
LOC: RAH 10:56
PROVIDERS: ATTEND Internal Medicine Cardiovascular Disease
DX: I70.8 Atherosclerosis of other arteries (principal); I25.10 Atherosclerotic heart disease of native coronary artery without angina pectoris; I70.0 Atherosclerosis of aorta
CPT/HCPCS: 75635; Q9967 ×2

== ENCOUNTER → 2022-05-31 | Outpatient (CLI) | payer OTHER, MEDICARE ==
[~2022-05-31] MED LIST changes: -IOHEXOL 350 MG/ML 100ML INFUS..BTL IV ONE; -IOHEXOL-350 50ML VIAL IV ONE; +REGADENOSON 0.4 MG/5 ML PF SYG IVP ONE; +REGADENOSON 0.4 MG/5 ML PF SYG IVP SCH
== END | disposition home or self-care (01) ==
LOC: EDUNIT# 04-29 08:20 → SHCH 10:05 → MERGE 10:05
PROVIDERS: ATTEND Internal Medicine Cardiovascular Disease
DX: R06.09 Other forms of dyspnea (principal); I25.10 Atherosclerotic heart disease of native coronary artery without angina pectoris; I11.9 Hypertensive heart disease without heart failure; Z95.5 Presence of coronary angioplasty implant and graft; Z79.899 Other long term (current) drug therapy; Z95.828 Presence of other vascular implants and grafts
CPT/HCPCS: 78452; 96374; 93017; J2785; A9500 ×2

== ENCOUNTER 2023-04-07 00:30 | Emergency (ER) | payer MEDICARE ==
[~2023-04-07] VITALS: Ht 167.6 cm; Wt 74.8 kg
[~2023-04-07 00:30] MED LIST changes: -REGADENOSON 0.4 MG/5 ML PF SYG IVP ONE; -REGADENOSON 0.4 MG/5 ML PF SYG IVP SCH
[2023-04-07 00:32] VITALS: BP 178/80; PULSE 78; RESP 20
[2023-04-07 01:03] LABS: BASOPHILS # (AUTO) 0.06 K/uL (0.00-0.20); BASOPHILS % (AUTO) 0.6 % (0.0-5.0); EOSINOPHILS # (AUTO) 0.18 K/uL (0.00-0.70); EOSINOPHILS % (AUTO) 1.8 % (0.0-8.0); HEMATOCRIT 34.9 % (42-54); IMMATURE GRANULOCYTE ABSOLUTE 0.02 K/uL (0-1); LYMPHOCYTES % (AUTO) 19.7 % (21.0-51.0); MEAN CORPUSCULAR HGB CONC 34.4 g/dL (32.0-36.0); MEAN CORPUSCULAR VOLUME 87.3 fL (79-99); MONOCYTES # (AUTO) 0.9 K/uL (0.1-1.0); MONOCYTES % (AUTO) 8.3 % (3.0-13.0); NEUTROPHILS # (AUTO) 7.1 K/uL (1.8-7.7); NEUTROPHILS % (AUTO) 69.4 % (40.0-77.0); PLATELET COUNT (AUTO) 267 K/uL (130-400); RED CELL DISTRIBUTION WIDTH 11.7 % (11.0-15.5); WHITE BLOOD COUNT (AUTO) 10.3 K/uL (4.8-10.8)
[2023-04-07 01:05] LABS: RAPID GROUP A STREP negative (NEGATIVE); SARS-CoV-2, RNA, NAAT NEGATIVE SARS CoV-2 (NEGATIVE)
[2023-04-07 01:14] LABS: INFLUENZA TYPE A Negative For Type A (NEGATIVE); INFLUENZA TYPE B Negative For Type B (NEGATIVE)
[2023-04-07 01:31] LABS: ALBUMIN 2.9 g/dL (3.5-5.0); BILIRUBIN,TOTAL 0.2 mg/dL (0.2-1.0); CREATININE 1.6 mg/dL (0.5-1.5); MAGNESIUM 1.9 mg/dL (1.80-2.40); POTASSIUM 4.6 mmol/L (3.5-5.1); TOTAL PROTEIN, SERUM 6.6 g/dL (6.0-8.3)
[2023-04-07 01:38] LABS: B-TYPE NATRIURETIC PEPTIDE 506 pg/mL (0-100)
== END 2023-04-07 03:48 | disposition left against medical advice (07) ==
LOC: EDH 00:30
DX: R05.9 Cough, unspecified (principal); Z20.822 Contact with and (suspected) exposure to COVID-19; Z53.21 Procedure and treatment not carried out due to patient leaving prior to being seen by health care provider
CPT/HCPCS: 36415; 71045; 80053; 82550; 83735; 83880; 84484; 85025; 87635; 87804; 87880; 93005; 99281